=== PATIENT | male | born 1985 | race Caucasian/White ===

== ENCOUNTER 2022-11-07 09:24 | Emergency (ER) | payer MEDICAID ==
[2022-11-07 10:40] LABS: APPEARANCE,URINE CLEAR (Clear); BILIRUBIN,URINE NEGATIVE (Negative); COLOR,URINE YELLOW (Yellow); GLUCOSE,URINE NEGATIVE (Negative); KETONES,URINE NEGATIVE (Negative); LEUKOCYTE ESTERASE,URINE NEGATIVE (Negative); NITRITE,URINE NEGATIVE (Negative); OCCULT BLOOD,URINE NEGATIVE (Negative); PROTEIN,URINE NEGATIVE (Negative); UROBILINOGEN,URINE 0.2 (0.2-1.0)
[2022-11-07 11:26] LABS: BACTERIA,URINE NOT SEEN /hpf (FEW); EPITHELIAL CELLS,URINE 0-5 /hpf (0-5); MUCUS,URINE NOT SEEN /hpf (FEW); RBC,URINE 0-5 /hpf (0-5); WBC,URINE 0-5 /hpf (0-5)
== END 2022-11-07 11:42 | disposition home or self-care (01) ==
LOC: JD.ED 09:24 → MERGE 09:24 → JD.ED 11:42
DX: R33.9 Retention of urine, unspecified (principal)
CPT/HCPCS: 51701; 81001; 99283; 99284